=== PATIENT | male | born 1930 | race Caucasian/White ===

== ENCOUNTER 2017-12-26 12:17 | Emergency (ER) | payer MEDICARE, BC ==
[2017-12-26] MEDS ORDERED: NS 0.9% 1000 ML* 1,000 ML IV ONE (13:03)
[2017-12-26] MEDS ORDERED: Acetaminophen TAB* 325 MG PO ONE (13:03)
--- NOTE | 2017-12-26 13:21 | RAD ---
HISTORY: Fever COMPARISONS: October 05, 2014 VIEWS: 1: frontal portable view of the chest at 1:08 PM. Evaluation lung apices is limited by positioning. FINDINGS: LINES AND TUBES: There is left-sided pacemaker. CARDIOMEDIASTINAL SILHOUETTE: The cardiomediastinal silhouette is normal for portable technique. PLEURA: The costophrenic angles are sharp. No pleural abnormalities are noted. LUNG PARENCHYMA: The lungs are clear. ABDOMEN: The upper abdomen is clear. There is no subphrenic gas. BONES AND SOFT TISSUES: No bone or soft tissue abnormalities are noted. IMPRESSION: NO ACTIVE CARDIOPULMONARY DISEASE.
[2017-12-26 13:32] LABS: ABS Basophils 0 10^3/ul (0-0.2); ABS Eosinophils 0.2 10^3/ul (0-0.6); ABS Lymphocytes 0.5 10^3/ul (1.0-4.8); ABS Monocytes 0.8 10^3/ul (0-0.8); ABS Neutrophils 6.8 10^3/ul (1.5-7.7); ABS Nucleated RBC 0 10^3/ul; Eosinophil % 2.4 % (0-6); Hematocrit 31 % (42-52); Hemoglobin 10.8 g/dl (14.0-18.0); Lymphocyte % 5.6 % (25-47); Mean Corpuscular HGB Conc 35 g/dl (31-36); Mean Corpuscular Hemoglobin 33 pg (27-31); Mean Corpuscular Volume 96 fL (80-94); Mean Platelet Volume 7 um3 (7.4-10.4); Nucleated Red Blood Cells % 0; Platelet Count 188 10^3/ul (150-450); Red Blood Count 3.25 10^6/ul (4.0-5.4); Red Cell Distribution Width 15 % (10.5-15); White Blood Count 8.2 10^3/ul (3.5-10.8)
[2017-12-26 13:40] LABS: INR 1.04 (0.77-1.02)
[2017-12-26] MEDS ORDERED: Ciprofloxacin TAB* 500 MG PO ONE (14:56)
[2017-12-26 15:11] LABS: Urine Appearance Clear; Urine Blood Negative (Negative); Urine Color Yellow; Urine Ketones Negative (Negative); Urine Protein 2+(100 mg/dL) (Negative); Urine Specific Gravity 1.014 (1.010-1.030); Urine Urobilinogen Negative (Negative)
[2017-12-26 16:22] VITALS: BP 132/65
--- NOTE | 2017-12-27 22:44 | ED ---
Tyler Mcginnis Stephanie, scribed for Bon Rodrigez MD on 12/26/17 at 1323 . HPI Febrile Illness - HPI Summary HPI Summary: The pt is an 87 y/o M presenting to the ED with c/o fever that began at 10:00. Symptoms include productive cough with white phlegm, chills, tremors, lower back pain that radiates to his L side and up to his ribs (began 3 weeks ago) and myalgia. The pt denies N/V/D, dysuria, hematuria, SOB and increased urinary frequency. - History of Current Complaint Chief Complaint: EDGeneral Time Seen by Provider: 12/26/17 12:56 Hx Obtained From: Patient Onset/Duration: Started Hours Ago, Still Present Time of Onset: 10:00 Timing: Constant Pain Intensity: 0 Pain Scale Used: 0-10 Numeric Aggravating Factors: Nothing Alleviating Factors: Nothing Associated Signs and Symptoms: Chills, Other: - cough with white phlegm, tremors , lower back pain that radiates to his L side and up to his ribs (began 3 weeks ago) and myalgia - Allergy/Home Medications Allergies/Adverse Reactions: Allergies Allergy/AdvReac Type Severity Reaction Status Date / Time MS Erythromycin Allergy Unknown Verified 10/05/14 09:32 [Erythromycin] Reaction Details MS Metronidazole Allergy Unknown Verified 10/05/14 09:32 [Metronidazole] Reaction Details MS Morphine [Morphine] Allergy Unknown Verified 10/05/14 09:32 Reaction Details MS Primidone [From Primodone] Allergy Unknown Verified 10/05/14 09:32 Reaction Details MS Simvastatin [From Zocor] Allergy Unknown Verified 10/05/14 09:32 Reaction Details chocolate Allergy Unknown Uncoded 10/05/14 09:32 Reaction Details PMH/Surg Hx/FS Hx/Imm Hx Endocrine/Hematology History: Reports: Hx Anemia Denies: Hx Diabetes Cardiovascular History: Reports: Hx Angina, Hx Auto Implanted Cardiovert Defib, Hx Coronary Artery Disease, Hx Pacemaker/ICD - 2011, Hx Syncope Denies: Hx Hypercholesterolemia, Hx Hypertension, Hx Myocardial Infarction, Hx Valvular Heart Disease Respiratory History: Denies: Hx Asthma, Hx Chronic Obstructive Pulmonary Disease (COPD) GI History: Reports: Hx Diverticulosis, Hx Gall Bladder Disease - CHOLEY History: Reports: Hx Benign Prostatic Hyperplasia, Other Problems/ Disorders - Prostate sx Musculoskeletal History: Reports: Hx Arthritis - KNEES, Hx Orthopedic Injury, Other Musculoskeletal History - LEFT BROKEN FEMUR, PELVIS Sensory History: Reports: Hx Contacts or Glasses, Hx Hearing Aid Opthamlomology History: Reports: Hx Contacts or Glasses - Surgical History Surgery Procedure, Year, and Place: PACEMAKER. CARDIAC STENT. [place]. L SHOULDER. PROSTATE Hx Anesthesia Reactions: No Infectious Disease History: No Infectious Disease History: Reports: Hx Hepatitis - UNKNOWN WHAT TYPE Denies: Hx Clostridium Difficile, Hx Human Immunodeficiency Virus (HIV), Hx of Known/Suspected MRSA, Hx Shingles, Hx Tuberculosis, Hx Known/Suspected VRE, Hx Known/Suspected VRSA, Traveled Outside the [place] in Last 30 Days - Family History Known Family History: Positive: Unknown - The pt denies fhx. - Social History Occupation: Retired Lives: With Family Alcohol Use: Rare Substance Use Type: Reports: None Smoking Status (MU): Never Smoked Tobacco Review of Systems Positive: Fever, Chills Negative: Erythema Negative: Sore Throat Negative: Chest Pain Negative: Shortness Of Breath, Cough Negative: Abdominal Pain, Vomiting, Nausea Negative: dysuria, frequency, hematuria Positive: Myalgia, Other - lower back pain that radiates to his L side and up to his ribs. Negative: Edema Negative: Rash Neurological: Other - tremors, Negative: dizziness All Other Systems Reviewed And Are Negative: Yes Physical Exam - Summary Physical Exam Summary: Constitutional: Well-developed, Well-nourished, Alert. (-) Distressed, rigors Skin: Warm, Dry HENT: Normocephalic; Atraumatic Eyes: Conjunctiva normal Neck: Musculoskeletal ROM normal neck. (-) JVD, (-) Stridor, (-) Tracheal deviation Cardio: Rhythm regular, rate normal, Heart sounds normal; Intact distal pulses; The pedal pulses are 2+ and symmetric. Radial pulses are 2+ and symmetric. (-) Murmur Pulmonary/Chest wall: Effort normal. (-) Respiratory distress, (-) Wheezes, (-) Rales Abd: Soft, (-) Tenderness, (-) Distension, (-) Guarding, (-) Rebound Musculoskeletal: (-) Edema Lymph: (-) Cervical adenopathy Neuro: Alert, Oriented x3 Psych: Mood and affect Normal Triage Information Reviewed: Yes Vital Signs On Initial Exam: Initial Vitals Temp Pulse Resp BP Pulse Ox 99.9 F 88 20 183/89 95 12/26/17 12:19 12/26/17 12:19 12/26/17 12:19 12/26/17 12:19 12/26/17 12:19 Vital Signs Reviewed: Yes Diagnostics - Vital Signs Vital Signs Temp Pulse Resp BP Pulse Ox 12/26/17 12:19 99.9 F 88 20 183/89 95 - Laboratory Result Diagrams: 12/26/17 13:15 12/26/17 13:15 Lab Statement: Any lab studies that have been ordered have been reviewed, and results considered in the medical decision making process. - Radiology CXR Xray Interpretation: No Acute Changes Radiology Interpretation Completed By: Radiologist - NO ACTIVE CARDIOPULMONARY DISEASE. Re-Evaluation - Re-Evaluation First Eval Re-Evaluation Time: 14:45 Change: Unchanged - The pt reports he has been having urinary hesitancy that began after his prostate surgery a few years ago. Course/Dx - Course Course Of Treatment: Because the pt was febrile, he will be discharged home with Cipro for 3 days. The pt has no signs of sepsis and he has no delirium. His family requested he was sent home in a taxi. - Diagnoses Provider Diagnoses: Acute urinary retention, Prostatic hypertrophy Discharge - Discharge Plan Condition: Stable Disposition: HOME Patient Education Materials: Urinary Retention in Men (ED) Referrals: Grant Adame MD [Primary Care Provider] - 3 Days Additional Instructions: RETURN TO THE EMERGENCY DEPARTMENT FOR CHANGING OR WORSENING SYMPTOMS The documentation as recorded by the Tyler gaviria Stephanie accurately reflects the service I personally performed and the decisions made by , Bon Rodrigez MD.
== END 2017-12-26 16:29 | disposition home or self-care (01) ==
LOC: ED 12:17
DX: N40.1 Benign prostatic hyperplasia with lower urinary tract symptoms (principal); R33.8 Other retention of urine; R05 Cough; R50.9 Fever, unspecified; Z88.3 Allergy status to other anti-infective agents; Z88.5 Allergy status to narcotic agent; Z88.8 Allergy status to other drugs, medicaments and biological substances
CPT/HCPCS: 36415; 71045; 80053; 81003; 81015; 83605; 84484; 85025; 85610; 85730; 87040; 87502; 96360; 99283; A9270-GY

== ENCOUNTER 2017-12-27 12:20 | Emergency (ER) | payer MEDICARE, BC ==
--- NOTE | 2017-12-27 12:44 | ED ---
Complaint/Male - History of Current Complaint Chief Complaint: EDUrogenitalProblems Time Seen by Provider: 12/27/17 12:38 Hx Obtained From: Patient, Medical Records - from 12/26/17 Onset/Duration: Sudden Onset, Lasting Hours, Still Present - acute urinary retention with gustafson in place Timing: Constant, Lasting Hours Severity Initially: Moderate Severity Currently: Moderate Location: Suprapubic Radiates to: none Character: Constant Pressure Aggravating Factor(s): Nothing Alleviating Factor(s): Nothing Associated Signs And Symptoms: Negative - Allergies/Home Medications Allergies/Adverse Reactions: Allergies Allergy/AdvReac Type Severity Reaction Status Date / Time MS Erythromycin Allergy Unknown Verified 10/05/14 09:32 [Erythromycin] Reaction Details MS Metronidazole Allergy Unknown Verified 10/05/14 09:32 [Metronidazole] Reaction Details MS Morphine [Morphine] Allergy Unknown Verified 10/05/14 09:32 Reaction Details MS Primidone [From Primodone] Allergy Unknown Verified 10/05/14 09:32 Reaction Details MS Simvastatin [From Zocor] Allergy Unknown Verified 10/05/14 09:32 Reaction Details chocolate Allergy Unknown Uncoded 10/05/14 09:32 Reaction Details PMH/Surg Hx/FS Hx/Imm Hx Previously Healthy: No Endocrine/Hematology History: Reports: Hx Anemia Denies: Hx Diabetes Cardiovascular History: Reports: Hx Angina, Hx Auto Implanted Cardiovert Defib, Hx Coronary Artery Disease, Hx Pacemaker/ICD - 2011, Hx Syncope Denies: Hx Hypercholesterolemia, Hx Hypertension, Hx Myocardial Infarction, Hx Valvular Heart Disease Respiratory History: Denies: Hx Asthma, Hx Chronic Obstructive Pulmonary Disease (COPD) GI History: Reports: Hx Diverticulosis, Hx Gall Bladder Disease - CELIO History: Reports: Hx Benign Prostatic Hyperplasia, Other Problems/ Disorders - Prostate sx Musculoskeletal History: Reports: Hx Arthritis - KNEES, Hx Orthopedic Injury, Other Musculoskeletal History - LEFT BROKEN FEMUR, PELVIS Sensory History: Reports: Hx Contacts or Glasses, Hx Hearing Aid Opthamlomology History: Reports: Hx Contacts or Glasses - Surgical History Surgery Procedure, Year, and Place: PACEMAKER. CARDIAC STENT. CELIO. L SHOULDER. PROSTATE Hx Anesthesia Reactions: No Infectious Disease History: No Infectious Disease History: Reports: Hx Hepatitis - UNKNOWN WHAT TYPE Denies: Hx Clostridium Difficile, Hx Human Immunodeficiency Virus (HIV), Hx of Known/Suspected MRSA, Hx Shingles, Hx Tuberculosis, Hx Known/Suspected VRE, Hx Known/Suspected VRSA, Traveled Outside the [place] in Last 30 Days - Family History Known Family History: Positive: Hypertension - Social History Alcohol Use: Rare Substance Use Type: Reports: None Smoking Status (MU): Never Smoked Tobacco Review Of Systems Constitutional: Positive: Negative Skin: Positive: Negative Respiratory: Positive: Negative Cardiovascular: Positive: Negative Gastrointestinal: Positive: Negative Genitourinary: Positive: Hematuria, Other - gustafson will not drain this am Musculoskeletal: Positive: Negative Neurological: Positive: Negative Psychological: Positive: Negative All Other Systems Reviewed And Are Negative: Yes Physical Exam Triage Information Reviewed: Yes Vital Signs On Initial Exam: Initial Vitals Temp Pulse Resp BP Pulse Ox 99.1 F 85 20 176/83 100 12/27/17 12:22 12/27/17 12:22 12/27/17 12:22 12/27/17 12:22 12/27/17 12:22 Vital Signs Reviewed: Yes Appearance: Positive: Well-Appearing, Well-Nourished, Pain Distress - mild Skin: Positive: Warm, Dry Head/Face: Positive: Normal Head/Face Inspection Eyes: Positive: EOMI, Conjunctiva Clear ENT: Positive: Normal ENT inspection Neck: Positive: Supple Respiratory/Lung Sounds: Positive: Clear to Auscultation Cardiovascular: Positive: RRR Abdomen Description: Positive: Nontender, Soft. Negative: Distended, Guarding Bowel Sounds: Positive: Present Male Genital Exam: Positive: normal genitalia, other - gustafson catheter in place, flushed by RN, clot released, gustafson draining pink tinged urine in good amounts. Pt reports relief of all discomfort Diagnostics - Vital Signs Vital Signs Temp Pulse Resp BP Pulse Ox 12/27/17 12:22 99.1 F 85 20 176/83 100 - Laboratory Lab Statement: Any lab studies that have been ordered have been reviewed, and results considered in the medical decision making process. Complaint Male Course/Dx - Course Course Of Treatment: Pt had gustafson catheter placed yesterday in ED. Returns today because catheter is not draining. Pt is on Cipro started yesterday. Pt has had catheters in the past for BPH. Pt is on ASA but not other blood thinners. Reports some hematuria this am. Denies fever, abd pain, N, V. Gustafson catheter was flushed by RN, large clot removed, pink tinged urine clears to yellow with good flow. Abd soft, nondistended and pt reports relief of discomfort. Gustafson bag changed by RN, pt instructed to continue Cipro as directed and to f/u with urology as directed yesterday. Pt states he is not a patient of [facility], had out of town urologists in the past. States he has [facility], will contact them on 12/28/17 and will follow up either with [facility] or [facility]. - Differential Dx/Diagnosis Differential Diagnosis/HQI/PQRI: Cancer, Other - acute urinary retention due to gustafson obstruction with clot Provider Diagnoses: acute urinary retention due to indwelling gustafson catheter obstruction by clot, relieved with catheter irrigation.
[2017-12-27 12:51] VITALS: BP 00/00
== END 2017-12-27 12:50 | disposition home or self-care (01) ==
LOC: ED 12:20
DX: T83.091A Other mechanical complication of indwelling urethral catheter, initial encounter (principal); R33.8 Other retention of urine; D64.9 Anemia, unspecified; I25.119 Atherosclerotic heart disease of native coronary artery with unspecified angina pectoris; Z95.810 Presence of automatic (implantable) cardiac defibrillator; N40.0 Benign prostatic hyperplasia without lower urinary tract symptoms; Z95.5 Presence of coronary angioplasty implant and graft; Z88.1 Allergy status to other antibiotic agents; Z88.5 Allergy status to narcotic agent; Z88.8 Allergy status to other drugs, medicaments and biological substances
CPT/HCPCS: 99282

== ENCOUNTER 2017-12-28 15:22 | Emergency (ER) | payer MEDICARE, BC ==
[2017-12-28 19:02] VITALS: BP 143/67
--- NOTE | 2017-12-28 21:53 | ED ---
Jet Mcginnis Tiffany, scribed for Lupe Dumont MD on 12/28/17 at 1823 . GI/ HPI - HPI Summary HPI Summary: The patient is an 87 year old M presenting to [facility] accompanied by step-son and with a chief complaint of blocked gustafson catheter since 13:00 today. The patient rates the pain 10/10 in severity. Symptoms aggravated by nothing. Symptoms alleviated by nothing. Patient recently had his catheter cleared during his ED visit on 12/27/17. - History of Current Complaint Chief Complaint: EDUrogenitalProblems Time Seen by Provider: 12/28/17 16:31 Stated Complaint: CATHER PROBLEMS Hx Obtained From: Patient Onset/Duration: Started Hours Ago - 13:00 today, Still Present Current Severity: Severe Pain Intensity: 10 - Allergy/Home Medications Allergies/Adverse Reactions: Allergies Allergy/AdvReac Type Severity Reaction Status Date / Time MS Erythromycin Allergy Unknown Verified 10/05/14 09:32 [Erythromycin] Reaction Details MS Metronidazole Allergy Unknown Verified 10/05/14 09:32 [Metronidazole] Reaction Details MS Morphine [Morphine] Allergy Unknown Verified 10/05/14 09:32 Reaction Details MS Primidone [From Primodone] Allergy Unknown Verified 10/05/14 09:32 Reaction Details MS Simvastatin [From Zocor] Allergy Unknown Verified 10/05/14 09:32 Reaction Details chocolate Allergy Unknown Uncoded 10/05/14 09:32 Reaction Details PMH/Surg Hx/FS Hx/Imm Hx Previously Healthy: No Endocrine/Hematology History: Reports: Hx Anemia Denies: Hx Diabetes Cardiovascular History: Reports: Hx Angina, Hx Auto Implanted Cardiovert Defib, Hx Coronary Artery Disease, Hx Pacemaker/ICD - 2011, Hx Syncope Denies: Hx Hypercholesterolemia, Hx Hypertension, Hx Myocardial Infarction, Hx Valvular Heart Disease Respiratory History: Denies: Hx Asthma, Hx Chronic Obstructive Pulmonary Disease (COPD) GI History: Reports: Hx Diverticulosis, Hx Gall Bladder Disease - CELIO History: Reports: Hx Benign Prostatic Hyperplasia, Other Problems/ Disorders - Prostate sx Musculoskeletal History: Reports: Hx Arthritis - KNEES, Hx Orthopedic Injury, Other Musculoskeletal History - LEFT BROKEN FEMUR, PELVIS Sensory History: Reports: Hx Contacts or Glasses, Hx Hearing Aid Opthamlomology History: Reports: Hx Contacts or Glasses - Surgical History Surgery Procedure, Year, and Place: PACEMAKER. CARDIAC STENT. CELIO. L SHOULDER. PROSTATE Hx Anesthesia Reactions: No Infectious Disease History: No Infectious Disease History: Reports: Hx Hepatitis - UNKNOWN WHAT TYPE Denies: Hx Clostridium Difficile, Hx Human Immunodeficiency Virus (HIV), Hx of Known/Suspected MRSA, Hx Shingles, Hx Tuberculosis, Hx Known/Suspected VRE, Hx Known/Suspected VRSA, Traveled Outside the [place] in Last 30 Days - Family History Known Family History: Positive: Hypertension - Social History Alcohol Use: None Hx Substance Use: No Substance Use Type: Reports: None Hx Tobacco Use: No Smoking Status (MU): Never Smoked Tobacco Review of Systems Negative: Fever Positive: other - Blocked gustafson catheter All Other Systems Reviewed And Are Negative: Yes Physical Exam - Summary Physical Exam Summary: Appearance: Ill-appearing, moderate pain distress, Well-nourished Skin: Warm, color reflects adequate perfusion Head: Normal Head/Face inspection Eyes: Conjunctiva clear ENT: Normal inspection Neck: Supple, no nodes, no JVD. Respiratory: Lungs clear, Normal breath sounds, no respiratory distress Cardio: RRR, No murmur, pulses normal, brisk capillary refill Abdomen: soft, nontender Bowel sounds: present Musculoskeletal: Strength Intact/ ROM intact. No calf tenderness. No edema. Neuro: Alert, muscle tone normal, facial symmetry, speech normal, sensory/motor intact Psychological: Normal Triage Information Reviewed: Yes Vital Signs On Initial Exam: Initial Vitals Temp Pulse Resp BP Pulse Ox 98.9 F 83 16 169/83 100 12/28/17 15:32 12/28/17 15:32 12/28/17 15:32 12/28/17 15:32 12/28/17 15:32 Vital Signs Reviewed: Yes Diagnostics - Vital Signs Vital Signs Temp Pulse Resp BP Pulse Ox 12/28/17 15:32 98.9 F 83 16 169/83 100 - Laboratory Lab Statement: Any lab studies that have been ordered have been reviewed, and results considered in the medical decision making process. GIGU Course/Dx - Course Course Of Treatment: Allergies noted. High blood pressure noted. Patient medications reviewed this visit. Discharge - Discharge Plan Condition: Stable Disposition: HOME Prescriptions: Ciprofloxacin HCl [Cipro] 500 mg PO BID #14 tablet Patient Education Materials: Gustafson Catheter Placement and Care (ED) Referrals: Grant Adame MD [Primary Care Provider] - Kemar Lehman MD [Medical Doctor] - As Soon As Possible Additional Instructions: We have extended your Cipro 500mg twice a day for one week more, so finish the Cipro you were given by Dr. Rodrigez and then finish the Cipro given by Dr. Dumont. Call for an appointment with urology to be seen as soon as they can accommodate you, hopefully within a week. Return to the ER if you have new or worsening symptoms. The documentation as recorded by the Jet gaviria Tiffany accurately reflects the service I personally performed and the decisions made by , Lupe Dumont MD.
== END 2017-12-28 19:01 | disposition home or self-care (01) ==
LOC: ED 15:22
DX: T83.9XXA Unspecified complication of genitourinary prosthetic device, implant and graft, initial encounter (principal); Z88.3 Allergy status to other anti-infective agents; Z88.5 Allergy status to narcotic agent; Z88.8 Allergy status to other drugs, medicaments and biological substances
CPT/HCPCS: 99282

== ENCOUNTER 2019-09-21 11:13 | Emergency (ER) | payer MEDICARE, OTHER, BC ==
--- NOTE | 2019-09-21 11:33 | ED ---
Back Pain - HPI Summary HPI Summary: 89 year old M brought to [facility] by EMS complains of sudden onset severe diffuse back pain radiating to the neck that started at 07:00 this morning. The patient rated the pain 8/10 in severity initially and 0/10 currently. Patient states he woke up this morning at 06:30, got dressed, and was preparing breakfast when he developed sudden onset diffuse back pain radiating to his neck. Patient reports his back pain lasted for an hour and a half and is now improved from initial onset. Patient now complains of being shakey. Patient denies chest discomfort, shortness of breath, nausea, and abdominal discomfort. 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 Hx OR in 2018 with stent placement. Patient states today's sx are different from his OR in 2018 but he called his acupuncturist who referred to the ED. Symptoms aggravated by nothing. Symptoms alleviated by nothing. On Eliquis per EMS. No hx HTN per EMS. No hx adverse reaction to IV contrast. No hx kidney disease. Hx pacemaker. - History of Current Complaint Chief Complaint: EDBackInjuryPain Stated Complaint: BACK PAIN PER EMS Time Seen by Provider: 09/21/19 11:15 Hx Obtained From: Patient, EMS Onset/Duration: Sudden Onset, Lasting Hours - 1.5, Still Present Onset/Duration: Started Hours Ago, Still Present Timing: Constant, Lasting Hours - 1.5 Back Pain Location: Is Diffuse, Radiates To - neck Severity Initially: Severe Severity Currently: None Pain Intensity: 0 Pain Scale Used: 0-10 Numeric Aggravating Symptom(s): Nothing Alleviating Symptom(s): Nothing Associated Signs And Symptoms: Positive: Negative - chest discomfort, shortness of breath, nausea, and abdominal discomfort, Other - chronic lower extremity edema with the left being worse than the right - Risk Factors AAA Risk Factors: Hypertension - Allergies/Home Medications Allergies/Adverse Reactions: Allergies Allergy/AdvReac Type Severity Reaction Status Date / Time chocolate flavor Allergy Unknown Verified 09/21/19 11:28 Reaction Details erythromycin base Allergy Unknown Verified 09/21/19 11:28 Reaction Details metronidazole Allergy Unknown Verified 09/21/19 11:28 Reaction Details morphine Allergy Unknown Verified 09/21/19 11:28 Reaction Details primidone Allergy Unknown Verified 09/21/19 11:28 Reaction Details simvastatin [From Zocor] Allergy Unknown Verified 09/21/19 11:28 Reaction Details Home Medications: Home Medications Apixaban* [Eliquis*] 2.5 mg PO BID 09/21/19 [History Confirmed 09/21/19] Azelaic Acid 1 applic TOPICAL DAILY PRN 09/21/19 [History Confirmed 09/21/19] Calcium Carbonate CHEW TAB* [Tums*] 500 mg PO BID PRN 09/21/19 [History Confirmed 09/21/19] Cholecalciferol TAB* [Vitamin D TAB*] 1,000 unit PO DAILY 09/21/19 [History Confirmed 09/21/19] Hypromellose [Goniovisc] 1 drop BOTH EYES DAILY PRN 09/21/19 [History Confirmed 09/21/19] Multivitamins/Minerals TAB* [Theragran/minerals TAB*] 1 tab PO DAILY 09/21/19 [ History Confirmed 09/21/19] Rosuvastatin (NF) [Crestor (NF)] 5 mg PO DAILY 09/21/19 [History Confirmed 09/21] Triamcinolone 0.1% CREAM (NF) [Kenalog 0.1% Cream (NF)] 1 applic TOPICAL DAILY PRN 09/21/19 [History Confirmed 09/21/19] PMH/Surg Hx/FS Hx/Imm Hx Endocrine/Hematology History: Reports: Hx Anemia Denies: Hx Diabetes Cardiovascular History: Reports: Hx Angina, Hx Auto Implanted Cardiovert Defib, Hx Coronary Artery Disease, Hx Pacemaker/ICD - 2011, Hx Syncope Denies: Hx Hypercholesterolemia, Hx Hypertension, Hx Myocardial Infarction, Hx Valvular Heart Disease Respiratory History: Denies: Hx Asthma, Hx Chronic Obstructive Pulmonary Disease (COPD) GI History: Reports: Hx Diverticulosis, Hx Gall Bladder Disease - CELIO History: Reports: Hx Benign Prostatic Hyperplasia, Other Problems/ Disorders - Prostate sx Musculoskeletal History: Reports: Hx Arthritis - KNEES, Hx Orthopedic Injury, Other Musculoskeletal History - LEFT BROKEN FEMUR, PELVIS Sensory History: Reports: Hx Contacts or Glasses, Hx Hearing Aid Opthamlomology History: Reports: Hx Contacts or Glasses - Surgical History Surgery Procedure, Year, and Place: PACEMAKER. CARDIAC STENT. CELIO. L SHOULDER. PROSTATE Hx Anesthesia Reactions: No Infectious Disease History: No Infectious Disease History: Reports: Hx Hepatitis - UNKNOWN WHAT TYPE Denies: Hx Clostridium Difficile, Hx Human Immunodeficiency Virus (HIV), Hx of Known/Suspected MRSA, Hx Shingles, Hx Tuberculosis, Hx Known/Suspected VRE, Hx Known/Suspected VRSA, Traveled Outside the [place] in Last 30 Days - Family History Known Family History: Positive: Hypertension - Social History Alcohol Use: None Hx Substance Use: No Substance Use Type: Reports: None Hx Tobacco Use: No Smoking Status (MU): Never Smoked Tobacco Review of Systems Constitutional: Other - shaking Negative: Chest Pain Negative: Shortness Of Breath Negative: Abdominal Pain, Nausea Positive: Other - chronic lower extremity edema, back pain All Other Systems Reviewed And Are Negative: Yes Physical Exam - Summary Physical Exam Summary: Constitutional: Well-developed, Well-nourished, Alert. (-) Distressed Skin: Warm, Dry HENT: Normocephalic; Atraumatic Eyes: Conjunctiva normal Neck: Musculoskeletal ROM normal neck. (-) JVD, (-) Stridor, (-) Tracheal deviation Cardio: Rhythm regular, rate normal, Heart sounds normal; Intact distal pulses; The pedal pulses are 2+ and symmetric. Radial pulses are 2+ and symmetric. (-) Murmur Pulmonary/Chest wall: Effort normal. (-) Respiratory distress, (-) Wheezes, (-) Rales Abd: Soft, (-) tenderness, (-) Distension, (-) Guarding, (-) Rebound Musculoskeletal: 2+ pitting edema in the left, no tenderness in back upon palpation, no pain with ROM of the back or torso Lymph: (-) Cervical adenopathy Neuro: Alert, Oriented x3 Psych: Mood and affect Normal Triage Information Reviewed: Yes Vital Signs On Initial Exam: Initial Vitals Temp Pulse Resp BP Pulse Ox 97.6 F 75 24 187/117 99 09/21/19 11:24 09/21/19 11:24 09/21/19 11:24 09/21/19 11:24 09/21/19 11:24 Vital Signs Reviewed: Yes Musculoskeletal: Positive: Edema Left - 2+ pitting edema. Negative: Other - no tenderness in back upon palpation and no pain in ROM of back or torso Procedures - Sedation Patient Received Moderate/Deep Sedation with Procedure: No Diagnostics - Vital Signs Vital Signs Temp Pulse Resp BP Pulse Ox 09/21/19 11:24 97.6 F 75 24 187/117 99 - Laboratory Result Diagrams: 09/21/19 11:49 09/21/19 11:49 Lab Statement: Any lab studies that have been ordered have been reviewed, and results considered in the medical decision making process. - CT CTA Chest CT Interpretation Completed By: Radiologist Summary of CT Findings: 1. Atherosclerosis 2. No aortic intimal flap to suggest dissection. No aneurysmal dilation of the aorta. 3. No pulmonary arterial filling defect to suggest pulmonary embolism. ED physician has reviewed this report. - EKG 11:27 Cardiac Rate: NL - 67 bpm EKG Rhythm: Sinus Rhythm Summary of EKG Findings: Normal sinus rhythm at 67 bpm, prolonged DC, 1st degree AV block, normal QRS, normal QTc, normal ST, normal T-waves, normal EKG. Back Pain Course/Dx - Course Course Of Treatment: 89 year old M brought to [facility] by EMS complains of back pain radiating to the neck this morning since which has improved. Physical exam findings: 2+ pitting edema in the left, no tenderness in back upon palpation, no pain with ROM of the back or torso. Bloodwork results with no significant abnormalities except for RBC 3.10 L, Hgb 10.2 L, Hct 30L, MCV 97 H, MCH 33H, RDW 16 H, Plt Count 144 L, Absolute Neuts (auto) 8.1 H, Absolute Lymphs (auto) 0.6L, Potassium 5.1 H, BUN 48 H, Creatinine 1.96 H, BUN/ Creatinine Ratio 24.5 H, Glucsose 139 H, B-Natriuretic Peptide 139 H. An EKG shows normal sinus rhythm at 67 bpm, prolonged DC, 1st degree AV block, normal QRS, normal QTc, normal ST, normal T-waves, normal EKG. CTA Chest shows 1. Atherosclerosis 2. No aortic intimal flap to suggest dissection. No aneurysmal dilation of the aorta. 3. No pulmonary arterial filling defect to suggest pulmonary embolism per radiologist. Final dx acute back pain. Patient will be discharged home and was referred to Dr. Adame. Patient was instructed to return to Emergency Department for new or worsening symptoms. Patient understands and is agreeable to this plan. - Diagnoses Provider Diagnoses: Acute back pain Discharge ED - Sign-Out/Discharge Documenting (check all that apply): Patient Departure - Discharge - Discharge Plan Condition: Stable Disposition: HOME Patient Education Materials: Back Pain (ED) Print Language: SAO TOMEAN Referrals: Grant Adame MD [Primary Care Provider] - - Billing Disposition and Condition Condition: STABLE Disposition: Home - Attestation Statements Document Initiated by Scribe: Yes Documenting Scribe: Manuela Terry Provider For Whom Dianaibe is Documenting (Include Credential): Sandra Esteves MD Scribe Attestation: I, Manuela Terry, scribed for Sandra Khoury MD on at [id number]. Scribe Documentation Reviewed: Yes Provider Attestation: The documentation as recorded by the scribe, Manuela Terry accurately reflects the service I personally performed and the decisions made by me, Sandra Khoury MD Status of Scribe Document: Viewed
[2019-09-21 12:08] LABS: ABS Eosinophils 0.1 10^3/ul (0-0.6); ABS Lymphocytes 0.6 10^3/ul (1.0-4.8); ABS Monocytes 0.8 10^3/ul (0-0.8); ABS Neutrophils 8.1 10^3/ul (1.5-7.7); Eosinophil % 1.1 %; Hematocrit 30 % (42-52); Hemoglobin 10.2 g/dL (14.0-18.0); Lymphocyte % 6.5 %; Mean Corpuscular HGB Conc 34 g/dL (31-36); Mean Corpuscular Hemoglobin 33 pg (27-31); Mean Corpuscular Volume 97 fL (80-94); Mean Platelet Volume 8.1 fL (7.4-10.4); Platelet Count 144 10^3/uL (150-450); Red Cell Distribution Width 16 % (10-15); White Blood Count 9.7 10^3/uL (3.5-10.8)
[2019-09-21 12:23] LABS: Albumin/Globulin Ratio 1.5 (1-3); BUN/Creatinine Ratio 24.5 (8-20); Calcium 9.5 mg/dL (8.6-10.3); EGFR African American 39.2 (>60); EGFR Non-African American 32.4 (>60); Globulin 2.7 g/dL (2-4); Potassium 5.1 mmol/L (3.5-5.0); Total Bilirubin 0.4 mg/dL (0.2-1.0); Total Protein 6.7 g/dL (6.4-8.9)
[2019-09-21 12:24] LABS: Troponin I 0.01 ng/mL (<0.04)
[2019-09-21] MEDS ORDERED: Iodixanol* (CONTRAST) 320 MG/ML 100 ML SDV IV ONE (12:28)
--- OUTSIDE RECORDS SUMMARY | 2019-09-21 13:45 | XMS REPORT | Summary of Care ---
:1930 Author Organization [facility] Address [address] [address] Care Team Providers Name Role Phone Grant Adame Primary Care Provider Fabián Phillips MD Secondary Drive Tester/Glass Deposition Tender Yessica Guerrero Meat Dresser Unavailable Reason for Visit Reason Comments Follow Up Pt. in for a Follow up on TIA. Pt. Denies Cardiac Symptoms. Encounter Details Date Type Department Care Team Description 09/01/2019 Office Visit Aylin Bui Martita, Paroxysmal atrial fibrillation (HCC) (Primary Dx); Cardiology MD Andrew Sinus node dysfunction (HCC); [address] Coronary artery disease involving muscogee coronary artery of muscogee heart without angina pectoris; [place] [address] [place] [address] Pacemaker [phone] Allergies Active Allergy Reactions Severity Noted Date Comments Chocolate 12/09/2007 Erythromycin GI Reaction High 12/09/2007 diarrhea Metronidazole 12/09/2007 Morphine GI Reaction Medium 12/09/2007 vomitting Prednisone Primidone SAT ACT INSTRUCTOR Reaction 08/30/2008 Dizziness and headache Probiotic GI Reaction 04/19/2014 Worse gas symptoms Tetracycline Hcl Simvastatin Other Medium 12/09/2007 Leg myalgias documented as of this encounter (statuses as of 09/01/2019) Medications Medication Sig Dispensed Refills Start Date End Date Status daily vitamin PO TABS Take 1 Tab by 0 Active mouth EVERY MORNING. Azelaic Acid (FINACEA) by Apply 0 Active 15 % Apply externally externally route Gel NEEDED Hypromellose Place to the 0 Active (ARTIFICIAL TEARS OP) external eye. calcium carbonate Take 1 Tab by 0 Active (TUMS) 500 MG Oral mouth NEEDED. Chew Tab allopurinol (ZYLOPRIM) take 1/2 tablet by 45 Tab 3 09/06/2018 Active 300 MG Oral Tab mouth once daily Omeprazole delayed rel take 1 capsule by 90 Cap 3 04/05/2019 Active cap 20 MG Oral CAPSULE mouth once daily DELAYED RELEASE Tamsulosin HCl take 1 to 2 180 Cap 3 04/05/2019 Active (FLOMAX) 0.4 MG Oral capsules by mouth Cap daily Vitamin D, Take by mouth 0 Active Cholecalciferol, 1000 DAILY. units Oral Cap apixaban (ELIQUIS) 2.5 Take 1 Tab by 180 Tab 3 05/02/2019 Active MG Oral mouth TWICE DAILY. TabIndications: TIA (transient ischemic attack), Paroxysmal atrial fibrillation (HCC) triamcinolone Apply to affected 80 g 5 06/09/2019 Active (KENALOG,ARISTOCORT) areas daily as 0.1 % Apply externally needed Cream Rosuvastatin Calcium 5 Take 1 Tab by 90 Tab 3 09/01/2019 Active MG Oral Tab mouth DAILY. documented as of this encounter (statuses as of 09/01/2019) Active Problems Problem Noted Date Atrial fibrillation 05/04/2019 Overview: Added automatically from request for surgery [id number] Paroxysmal atrial fibrillation 05/02/2019 Abnormality of mitral valve annulus 03/24/2019 Overview: Added automatically from request for surgery [id number] Right-sided low back pain with sciatica 07/02/2016 Lumbosacral spondylosis with radiculopathy 07/02/2016 Status post total right knee replacement 08/17/2015 S/P total knee arthroplasty 06/01/2015 Acute on chronic renal insufficiency 05/16/2015 Retention of urine 05/16/2015 Hyponatremia 05/16/2015 Osteoarthrosis, unspecified whether generalized or localized, lower leg 2014 Ptosis, both eyes 03/28/2015 Bilateral dry eyes 03/28/2015 Sinus node dysfunction 11/27/2014 Overview: Perm pacer placed 2010 Coronary artery disease involving muscogee coronary artery of muscogee heart 12/03 without angina pectoris Overview: Status post placement of drug-eluting stent in the left anterior descending, July [address] Reza Crockett at [facility] BMI 28.0-28.9,adult 06/24/2011 Overview: This patient's BMI has been calculated and is above average, and BMI management plan is completed. 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 Epiretinal membrane, both eyes 08/24/2002 Asteroid hyalitis of left eye 08/24/2002 Bilateral pseudophakia 07/01/2000 Essential hypertension Endothelial corneal dystrophy Muscle pain Joint pain Limb tremor Overview: Right Arm Tremor CKD (chronic kidney disease) stage 3, GFR 30-59 ml/min documented as of this encounter (statuses as of 09/01/2019) Resolved Problems Problem Noted Date Resolved Date Anemia, blood loss 05/16/2015 08/02/2018 documented as of this encounter (statuses as of 09/01/2019) Immunizations Name Administration Dates Next Due Depo Medrol (40mg) 04/19/2014, 11/25/2010, 12/10/2009 Depo Medrol (80mg) 11/25/2011 H1N1 Injectable Adult 10/31/2009 Influenza (IM) Preservative Free 07/19/2013, 08/03/2012, 08/30/2008 Influenza Vaccine High Dose 08/09/2019, 08/02/2018, 08/03/2017, 07/15/2016, 07/30/2015, 07/25/2014 Pneumococcal Conjugate Vaccine 08/17/1998 Pneumococcal Conjugate(13 Valent) 11/27/2014 dT Vaccine 08/17/1998 documented as of this encounter Social History Tobacco Use Types Packs/Day Years Used Date Never Smoker Smokeless Tobacco: Never Used Alcohol Use Drinks/Week oz/Week Comments No 0 Standard drinks or equivalent 0.0 Sex Assigned at Date Recorded Not on file Job Start Date Occupation Industry Not on file Not on file Not on file Travel History Travel Start Travel End No recent travel history available. documented as of this encounter Last Filed Vital Signs Vital Sign Reading Time Taken Comments Blood Pressure 128/70 09/01/2019 4:14 PM EDT Pulse 76 09/01/2019 4:14 PM EDT Temperature - - Respiratory Rate - - Oxygen Saturation - - Inhaled Oxygen Concentration - - Weight 88.9 kg (196 lb) 09/01/2019 4:14 PM EDT Height 177.8 cm (5' 10") 09/01/2019 4:14 PM EDT Body Mass Index 28.12 09/01/2019 4:14 PM EDT documented in this encounter Patient Instructions Patient InstructionsMcAndrew Recinos MD - 09/01/2019 4:20 PM EDT START taking Crestor 5mg once every evening. No other medication changes today. Continue with regular activity/exercise. Follow up with me in 6 months or sooner if needed. documented in this encounter Progress Notes Andrew Anders MD - 09/01/2019 4:20 PM EDT [facility] Patient: Vlad Kaba Date of : 1930 Date of Service: 09/01/2019 REFERRING PRACTITIONER: Grant Adame PRIMARY CARE PROVIDER: Grant Adame Chief Complaint: Chief Complaint Patient presents with Follow Up Pt. in for a Follow up on TIA. Pt. Denies Cardiac Symptoms. History of Present Illness: We had the pleasure of seeing Vlad Kaba today at the [facility]. He is a 88-y.o. male with HTN, CKD, GERD, Schatzki's ring s/p esophageal dilation, SSS s/p Medtronic dual chamber ppm, CAD with ACS 2010 and resultant SONIA to mLAD with residual moderate disease in diag and RCA. He also had a TIA 01/2019, and pacemaker interrogations have revealedparoxysmal atrial fibrillation. In May 2019 he had an atrial lead fracture and had generator and lead replacement. Mr. Kaba returns to cardiology clinic today for routine f/u. Since his last visit with me, he reports feeling fairly well. He denies any limiting dyspnea or CP. He does aquatic exercises at twice weekly and feels good with that. Denies any palpitations, lightheadedness, or syncope. No orthopnea, paroxysmal dyspnea, or lower extremity edema. Patient Active Problem List Diagnosis Gout, GERD (gastroesophageal reflux disease) DA (degenerative arthritis) Mild Renal Insufficiency BPH Diverticulitis HDL lipoprotein deficiency Rosacea Schatzki's ring Colonic polyp Benign essential tremor Macular cyst, hole, or pseudohole of retina BMI 28.0-28.9,adult Coronary artery disease involving muscogee coronary artery of muscogee heart without angina pectoris Essential hypertension Sinus node dysfunction (HCC) Osteoarthrosis, unspecified whether generalized or localized, lower leg Acute on chronic renal insufficiency Retention of urine Hyponatremia S/P total knee arthroplasty Status post total right knee replacement Bilateral pseudophakia Epiretinal membrane, both eyes 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 Muscle pain Joint pain Limb tremor Ptosis, both eyes Bilateral dry eyes Right-sided low back pain with sciatica Lumbosacral spondylosis with radiculopathy CKD (chronic kidney disease) stage 3, GFR 30-59 ml/min (HCC) Abnormality of mitral valve annulus Paroxysmal atrial fibrillation (HCC) Atrial fibrillation (HCC) Past Medical History: Diagnosis Date Actinic keratosis of multiple sites of head and neck Benign essential tremor BPH 12/09/2007 CKD (chronic kidney disease) stage 3, GFR 30-59 ml/min (HCC) DA (degenerative arthritis) 12/09/2007 Diverticulitis 12/09/2007 GERD (gastroesophageal reflux disease) 12/09/2007 Gout, 12/09/2007 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 ARTHROPLASTY TOTAL KNEE Right 05/14/2015 Procedure: ARTHROPLASTY TOTAL KNEE PERSONA RIGHT; Surgeon: Galileo Young MD ; Location: [facility] MAIN OR [facility] ANGIOP ICRA PRQ CATARACT EXTRACTION NEC 1999 CATARACT/LENS SURGERY CYSTOSCOPY 07/30/2010 Procedure:CYSTOSCOPY; Surgeon:YUE YADAV; Location:[facility] ANCILLARY OR; Laterality:N/A CYSTOSCOPY 08/23/2010 Procedure:CYSTOSCOPY; Surgeon:YUE YADAV; Location:[facility] MAIN OR; Laterality :N/A ECHO, TRANS ESOPHOGEAL N/A 04/19/2019 Procedure: Echo, Trans Esophogeal; Surgeon: Andrew Anders MD; Location : [facility] CCL IMPLANT PERMANENT PACEMAKER INSERTION 12/26/11 Dr. Crockett LEFT HEART CATH,RETROGGRADE,FRO 07/28/11 Cardiac Cath, Left Heart PHACOEMULSIFICATION WITH INTRA OCULAR LENS Right 06/17/2000 DR. MARY LUONGSOJose Model: SA30AL, +16.5D, SN: [id number] PHACOEMULSIFICATION WITH INTRA OCULAR LENS Left 07/01/2000 DR. MARY PANTOJA Model: SA30AL +17.0D sn: [id number] IA FEMUR/KNEE SURG UNLISTED IA INS NEW/RPLCMT PRM PACEMAKR W/TRANS ELTRD ATRIAL IA OPEN CORONARY ENDARTERECTOMY 07/28/11 Angioplasty IA RECONSTRUCT SCAPHOID CARPAL W PROSTHESIS IA REMOVAL GALLBLADDER 1971 PROSTATIC OPERATION NEC 05/31/09 ablation of prostate REPAIR OF HAMMER TOE 1966 Left ROTATOR CUFF REPAIR 12/1999 Left VITRECTOMY;W/EPIRETINAL MEMBRAN Right 01/04/2009 25ga VXMX, kenalog--CELESTINO YAG CAPSULOTOMY - OD - RIGHT EYE Right 03/09/2002 Dr. Belle YAG CAPSULOTOMY - OS - LEFT EYE Left 04/10/2003 Dr. TIRADO Allergies Allergen Reactions Erythromycin GI Reaction diarrhea Morphine GI Reaction vomitting Zocor [Simvastatin] Other Leg myalgias Chocolate Metronidazole Prednisone Primidone SAT ACT INSTRUCTOR Reaction Dizziness and headache Probiotic GI Reaction Worse gas symptoms Tetracycline Hcl Current Outpatient Medications Medication Sig allopurinol (ZYLOPRIM) 300 MG Oral Tab take 1/2 tablet by mouth once daily apixaban (ELIQUIS) 2.5 MG Oral Tab Take 1 Tab by mouth TWICE DAILY. Azelaic Acid (FINACEA) 15 % Apply externally Gel by Apply externally route NEEDED calcium carbonate (TUMS) 500 MG Oral Chew Tab Take 1 Tab by mouth NEEDED. daily vitamin PO TABS Take 1 Tab by mouth EVERY MORNING. Hypromellose (ARTIFICIAL TEARS OP) Place to the external eye. Omeprazole delayed rel cap 20 MG Oral CAPSULE DELAYED RELEASE take 1 capsule by mouth once daily Rosuvastatin Calcium 5 MG Oral Tab Take 1 Tab by mouth DAILY. Tamsulosin HCl (FLOMAX) 0.4 MG Oral Cap take 1 to 2 capsules by mouth daily triamcinolone (KENALOG,ARISTOCORT) 0.1 % Apply externally Cream Apply to affected areas dailyas needed Vitamin D, Cholecalciferol, 1000 units Oral Cap Take by mouth DAILY. No current facility-administered medications for this visit. Family History Problem Relation Age of Onset Stroke Mother Heart Father [place], cyanide poisoning Diabetes No family history Glaucoma No family history Blindness No family history Macular Degeneration No family history Other Eye Problems No family history Social History Socioeconomic History Marital status: Spouse name: Not on file Number of children: Not on file Years of education: Not on file Highest education level: Not on file Occupational History Not on file Social Needs Financial resource strain: Not on file Food insecurity: Worry: Not on file Inability: Not on file Transportation needs: Medical: Not on file Non-medical: Not on file Tobacco Use Smoking status: Never Smoker Smokeless tobacco: Never Used Substance and Sexual Activity Alcohol use: No Alcohol/week: 0.0 standard drinks Drug use: No Sexual activity: Not on file Lifestyle Physical activity: Days per week: Not on file Minutes per session: Not on file Stress: Not on file Relationships Social connections: Talks on phone: Not on file Gets together: Not on file Attends protestant service: Not on file Active member of club or organization: Not on file Attends meetings of clubs or organizations: Not on file Relationship status: Not on file Intimate partner violence: Fear of current or ex partner: Not on file Emotionally abused: Not on file Physically abused: Not on file Forced sexual activity: Not on file Other Topics Concern Not on file Social History Narrative Not on file Review of Systems - Negative except as noted in HPI. Physical Exam: Vitals: 09/01/19 1614 BP: 128/70 BP Location: Right arm Patient Position: Sitting Pulse: 76 Weight: 196 lb (88.9 kg) Height: 5' 10" (1.778 m) Body mass index is 28.12 kg/m. General: Well nourished, alert 88-y.o. male in NAD HEENT: anicteric, MMM, no E/E OP, conj pink Neck: JVP approx 5-6 cm above RA, no carotid bruits or LAD CV: RRR, normal s1/s2, 1-2/6 AGUSTINA at USB and 2/6 systolic murmur at apex as before. Pulm: CTA bilaterally without wheezes, rhonchi, or rales. No increased work of breathing. Abd: soft, NT, ND, +BS. No appreciable bruits. Ext: 1+ bilateral lower extremity edema, no cyanosis, no cords, redness, or warmth, 1+ distal pulses Neuro: no gross focal deficits but full exam not performed. Skin: no visible lesions Labs: Lab Results Component Value Date NA 137 05/25/2019 K 5.0 05/25/2019 CL 108 (H) 05/25/2019 CO2 21 (L) 05/25/2019 GLUCOSE 115 (H) 05/25/2019 BUN 43 (H) 05/25/2019 CREATININE 1.9 (H) 05/25/2019 CALCIUM 9.2 05/25/2019 TP 7.2 11/30/2018 ALBUMIN 4.0 11/30/2018 ALBUMIN 3.8 11/30/2018 AST 28 11/30/2018 ALT 22 11/30/2018 ALK 78 11/30/2018 TBILI 0.3 11/30/2018 EGFR 34 05/25/2019 No results found for: BNP Lab Results Component Value Date CHOL 143 11/30/2018 TRIG 117 11/30/2018 HDL 29 (L) 11/30/2018 LDL 91 11/30/2018 LDLHDLRATIO 3.1 11/30/2018 CHOLHDLRATIO 4.9 11/30/2018 Cardiac Studies: PPM Interrogation 07/06/19: This is a follow-up visit from device implant and atrial lead. There have been 5 episodes of atrial fibrillation with the longest lasting for 98 minutes. All episodes occurred on 05/27/19. On Eliquis. Heart rates ranged between 60-100 bpm the majority of the time. Pacemaker function appears normal. LIZETH 04/19/19: FINAL IMPRESSION: Mild concentric LVH with moderate left atrial enlargement and no evidence of LA/AMANUEL thrombus. Normal LV systolic function with no regional wall motion abnormalities and estimated LVEF 55-60%. Mildly dilated right heart with preserved RV function Moderate mitral annular calcification with mobile mass likely a calcified chord (see text). Moderate mitral valve regurgitation No other significant valvular stenosis or regurgitation No pericardial effusion. TTE 03/02/19: Mitral Valve Mitral valve has mildly thickened but flexible leaflets. No evidence of mitral stenosis or prolapse. There is mild to moderate posterior> anterior mitral annular calcification. A mobile echodensity is seen on the ventricular side of the posterior mitral annulus (see images 44-45, 53-55, 63-64). This most likely represents mobile calcification, although an old calcified thrombus or mass cannot be completely ruled out. Consider LIZETH or cMRI for further evaluation if clinically indicated. There is mild to moderate mitral regurgitation. FINAL IMPRESSION: Mild concentric LVH with moderate left atrial enlargement. Normal LV systolic function with no regional wall motion abnormalities; estimated LVEF 55-60%. Mild right heart enlargement with normal RV contractility. Mitral annular calcification with mild-moderate mitral regurgitation and mobile echodensity on the posterior annulus (see text). Mild aortic and tricuspid regurgitation. Mild elevation in estimated pulmonary arterial systolic pressure. No pericardial effusion. Compared to prior [facility] echo report 09/20/2014, estimated PASP has decreased (51 mmHg --> 43 mmHg) and a mitral annular echodensity is now reported. Exercise SPECT at [facility] 10/06/2014: Left Heart Cath at [facility] 07/2011: Assessment & Plan: Vlad Kaba is a 88-y.o. male with HTN, CKD, GERD, Schatzki's ring s/p esophageal dilation, SSS s/p Medtronic dual chamber ppm, CAD with ACS 2010 and resultant SONIA to mLAD with residual moderate disease in diag and RCA. He also had a TIA 01/2019, and pacemaker interrogations have revealed paroxysmal atrial fibrillation. In May 2019 he had an atrial lead fracture and had generator and lead replacement. ICD-9-CM ICD-10-CM 1. Paroxysmal atrial fibrillation (HCC) 427.31 I48.0 2. Sinus node dysfunction (HCC) 427.81 I49.5 3. Coronary artery disease involving muscogee coronary artery of muscogee heart without angina pectoris 414.01 I25.10 4. Pacemaker V45.01 Z95.0 1. Paroxysmal Atrial Fibrillation: The etiology of atrial fibrillation in this patient is most likely related to age, HTN, and possibly the CAD. The heart- rate is currently well controlled on the current medical regimen. This patient' s [id number] score is 6. I recommend the following treatment strategy and medical regimen for this patient: Stroke prevention: Based on the patient's [id number] risk profile, I recommend continuing OACtherapy with Eliquis. Given his age > 80 and creatinine > 1.5, we'll continue with the 2.5mg BID dose. Rate control: Pt not on any AV elie agents but there is no report of high rate episodes on ppminterrogation. Rhythm control: N/A; pt in NSR most of the time and is asymptomatic when in AF. 2. Mitral Annular Abnormality: Most likely a calcified chord on LIZETH. Given that we're anticoagulating him anyway for the Afib, no further w/u of this is needed. 3. Coronary Artery Disease, s/p SONIA to mLAD: Currently asymptomatic from an ischemic standpoint. I recommend the following medical regimen: Antiplatelets: Not on ASA given Eliquis. Statin: Had significant myalgias from atorvastatin. Also thinks that his neurologic symptoms in January were related to the Crestor but that is highly unlikely and most likely was a TIA in the setting of not being anticoagulated for his Afib. Will retry low dose Crestor 5mg daily and he'll let me know if he has any problems with that. Beta-ketan: Not on. May consider adding at some point given his prior ACS. CHUN-inhibitor/ARB: Also not on. Given his significant CKD we probably can 't add this med class. 4. SSS s/p Medtronic Dual Chamber PPM: Cont remote checks of his device. Thank you for allowing me to participate in the care of Vladthai Kaba. We will plan on f/u in our office in 6 months or sooner prn. If you have any questions or concerns please feel free to call ouroffice at . Andrew Anders MD, 09/01/2019, 20:58 This note was created using my previous note as a template; changes were made where appropriate, andall information in the current note is up to date to the best of my knowledge.Electronically signed by Andrew Anders MD at 2018 9:07 PM EDTdocumented in this encounter Plan of Treatment Date Type Specialty Care Team Description 09/13/2019 Office Visit Internal Medicine Grant Adame MD [address] [place] [address] [phone] 11/17/2019 [facility] 03/01/2020 Office Visit Cardiology Andrew Anders MD [address] [place] [address] [phone] 03/19/2020 [facility] 05/18/2020 [facility] Ophthalmology 05/18/2020 Ocular Visit Optometry Fabián Ruth, OD [address] [address] [phone] 07/23/2020 [facility] Health Maintenance Due Date Last Done Comments ZOSTER IMMUNIZATION SERIES 1980 (1 of 2) FALL RISK ASSESSMENT 1995 PNEUMOCOCCAL 65+YRS (2 of 2 11/27/2015 11/27/2014, 08/17/1998 - PPSV23) MEDICARE ANNUAL WELLNESS 05/03/2016 05/03/2015 (Postponed) VISIT DEPRESSION SCREENING 05/11/2020 05/11/2019 INFLUENZA VACCINE Completed 08/09/2019, 08/02/2018, 08/03/2017, Additional history exists HPV IMMUNIZATION SERIES Aged Out No longer eligible based on patient's age to complete this topic MENINGOCOCCAL VACCINE IMM Aged Out No longer eligible based on patient's age to complete this topic documented as of this encounter Goals Goal Patient Goal Associated Recent Patient-Stated? Author Type Problems Progress Blood Pressure Blood Pressure Essential 128/70 No Deep, < 140/90 hypertension (09/01/2019 MD Grant 4:14 PM EDT) Note: Hypertension Care Plan Based on the patient's clinical history and according to JNC 8 guidelines target blood pressure goal is less than 140/90. Based on the patient's last blood pressure of BP: 140/82 mmHg the patient is at at goal. As your provider, it is important that I advise you regarding: your current medications and help you with any challenges you may face taking your medications as directed (ex. instructions, cost, side effects, and interactions). lifestyle changes: exercise, weight reduction, diet and dietary sodium reduction your clinical goals and how you can achieve success: exercise plan and diet improvements medication management: adjusted medications as appropriate the availability of a care partner to help you with your Hypertension patient education/self-management tools provided: Current self-management tools adequate To successfully manage my Hypertension I will: monitor my blood pressure daily, understanding that my goal is less than 140/ 90 per my healthcare provider's recommendation. I will schedule an appointment with my provider if consistent abnormal readings greater than 160/100. take medications every day as prescribed by my healthcare provider and if unable to take them I will discuss with my provider. monitor for symptoms of chest pain, chest tightness/pressure, irregular heartbeat, persistent dizziness, radiating arm pain, and neck or jaw pain. If any of these symptoms are noticed I will seek medical attention immediately by calling 911 exercise/walk 45 minutes 5 day(s) per week. If I experience chest pain, chest tightness, or shortness of breath, I will seek medical attention immediately. follow a diet rich in fruits, vegetables, and low-fat dairy products with reduced content of saturated & total fat. I will reduce my sodium intake daily. An example is the DASH diet. To obtain more information please refer to the DASH Eating Plan listed in Educational Resources. record my blood pressure results. [employer] is safe and secure way for you to do this in your medical record online. try to obtain an ideal body weight. My recent weight was Weight: 196 lb ( 88.905 kg). My weight loss goal for my next office visit is 195. limit alcohol consumption. For men two drinks per day and women one drink per day. if currently smoking, will discuss how to quit smoking with my healthcare provider and work towards quitting. Educational Resources: National Heart, Lung, & Blood [place] http://nhlbi.nih.gov/hbp/index.html The DASH Diet Eating Plan http://www.nhlbi.nih.gov/health/health-topics/ topics/dash/ Academy of Nutrition & DIetetics http://eatright.org National Smoking Cessation Site http://smokefree.gov Blood Pressure < Blood Pressure Essential 128/70 (09/01/2019 Grant Moore, 140/90 hypertension 4:14 PM EDT) Note: Hypertension Care Plan Based on the patient's clinical history and according to JNC 8 guidelines target blood pressure goal is less than 140/90. Based on the patient's last blood pressure of BP: 140/82 mmHg the patient is at at goal. As your provider, it is important that I advise you regarding: your current medications and help you with any challenges you may face taking your medications as directed (ex. instructions, cost, side effects, and interactions). lifestyle changes: exercise, weight reduction, diet, dietary sodium reduction and medication compliance your clinical goals and how you can achieve success: weight reduction, exercise plan and diet improvements medication management: adjusted medications as appropriate the availability of a care partner to help you with your Hypertension patient education/self-management tools provided: Current self-management tools adequate To successfully manage my Hypertension I will: monitor my blood pressure daily, understanding that my goal is less than 140/ 90 per my healthcare provider's recommendation. I will schedule an appointment with my provider if consistent abnormal readings greater than 160/100. take medications every day as prescribed by my healthcare provider and if unable to take them I will discuss with my provider. monitor for symptoms of chest pain, chest tightness/pressure, irregular heartbeat, persistent dizziness, radiating arm pain, and neck or jaw pain. If any of these symptoms are noticed I will seek medical attention immediately by calling 911 exercise/walk 45 minutes 5 day(s) per week. If I experience chest pain, chest tightness, or shortness of breath, I will seek medical attention immediately. follow a diet rich in fruits, vegetables, and low-fat dairy products with reduced content of saturated & total fat. I will reduce my sodium intake daily. An example is the DASH diet. To obtain more information please refer to the DASH Eating Plan listed in Educational Resources. record my blood pressure results. [employer] is safe and secure way for you to do this in your medical record online. try to obtain an ideal body weight. My recent weight was Weight: 196 lb ( 88.905 kg). My weight loss goal for my next office visit is 195. limit alcohol consumption. For men two drinks per day and women one drink per day. if currently smoking, will discuss how to quit smoking with my healthcare provider and work towards quitting. Educational Resources: National Heart, Lung, & Blood [place] http://nhlbi.nih.gov/hbp/index.html The DASH Diet Eating Plan http://www.nhlbi.nih.gov/health/health-topics/ topics/dash/ Academy of Nutrition & DIetetics http://eatright.org National Smoking Cessation Site http://smokefree.gov Blood Pressure < 140/90 Blood Pressure 128/70 (09/01/2019 4:14 Malini Flores MD PM EDT) Note: This is an individualized treatment (blood pressure) goal for Vlad Kaba: Displayed above (on the left) is your goal for blood pressure control. Your most recent blood pressure is also shown above, on the right. You should try to achieve blood pressures that are lower than your goal listed above (on the left). Take all prescribed medications as directed Self-management Malini Flores MD Note: This is an individualized self-management goal for Vlad Kaba: Please take all prescribed medications as directed. 1. Do not skip doses. If you cannot afford your medications, talk with your doctor. 2. Use a pill reminder system such as a pill box if needed. Your pharmacist can help you with this. 3. Contact your Pharmacy 5 days before your medication runs out. If you cannot take your medications for any reasons, talk with your doctor. 4. Please bring all of your medication bottles and inhalers (or a list of all your medications/inhalers) with you to every visit. Potential barriers to meeting all of your care plan goals will continue to be addressed on an ongoing basis. documented as of this encounter Implants Implanted Type Area Creative Resource Manager Device Shelf Model / Serial Identifier Expiration / Lot Date Smart Set Bone Cement W/ Gentimy - [id number] Right: DEPUY 08/09/2016 [id number] / Implanted: Qty: 1 on 05/14/2015 by Galileo Young MD at [facility] Knee / [id number] Smart Set Cement - [id number] Right: DEPUY 10/09/2016 [id number] / Implanted: Qty: 1 on 05/14/2015 by Galileo Young MD at [facility] Knee / [id number] Persona Knee Femur Cemented Posterior Stabilized Standard Right 12 Right: HAMMAD BAZAN [id number] 03/08/2024 [id number] / Implanted: Qty: 1 on 05/14/2015 by Galileo Young MD at [facility] [employer]nee ASSOC 2 / [id number] Persona Knee Natural Tibia Cemented 5 Degree Stemmed Right Size J Right: HAMMAD BAZAN [id number] 03/08/2023 [id number] / Implanted: Qty: 1 on 05/14/2015 by Galileo Young MD at [facility] Knee ASSOC 2 / [id number] Persona Knee All Poly Patella Cemented 38mm Diameter 9.5 Thickness Right: HAMMAD BAZAN [id number] 11/08/2021 [id number] / Implanted: Qty: 1 on 05/14/2015 by Galileo Young MD at [facility] [employer] 8 / [id number] Persona Knee Articular Surface Fixed Bearing Posterior Stabilized Right 10mm Height Right: HAMMAD BAAZN [id number] 07/09/2020 [id number] / Implanted: Qty: 1 on 05/14/2015 by Galileo Young MD at [facility] [employer] 0 / [id number] Capsurefix Lead 5076-52cm - [id number] [employer] 01/05/2021 [id number] / Implanted: Qty: 1 on 05/24/2019 by Ronni Cedeno MD at [facility] [id number] / Advisa Mri [id number] Pacemaker - [id number] [employer] 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 Order was discussed with: Unable to determine at this time I discussed all options and Unable to determine at this time (full patient/surrogate requested and agreed to: code until choice is made and new order placed) Full Code 04/19/2019 9:26 AM 05/24/2019 7:05 AM Does the patient have decision making capacity? Yes Order was discussed with: Patient I discussed all options and patient/surrogate requested and agreed to: Full Code Full Code 04/19/2019 9:25 AM 04/19/2019 9:26 AM Does the patient have decision making capacity? Yes Order was discussed with: Patient I discussed all options and patient/surrogate requested and agreed to: Full Code Full Code 04/19/2019 9:25 AM 04/19/2019 9:25 AM Does the patient have decision making capacity? Yes Order was discussed with: Patient I discussed all options and patient/surrogate requested and agreed to: Full Code
--- OUTSIDE RECORDS SUMMARY | 2019-09-21 13:45 | XMS REPORT | Summary of Care ---
:1930 Author Organization [facility] Address [address] [place] [address] Care Team Providers Name Role Phone Grant Adame Primary Care Provider Fabián Phillips MD Secondary Web Merchant/Director Of Technology Yessica Guerrero Plow Shaker Unavailable Reason for Visit Reason Comments Hypertension f/u BP: 132/72; about week ago seem to be running low; has resolved since. 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 kaguyuk heart without angina pectoris; [place] [address] Weakness of both lower extremities [phone] Allergies Active Allergy Reactions Severity Noted Date Comments Chocolate 12/09/2007 Erythromycin GI Reaction High 12/09/2007 diarrhea Metronidazole 12/09/2007 Morphine GI Reaction Medium 12/09/2007 vomitting Prednisone Primidone CAREER MANAGER Reaction 08/30/2008 Dizziness and headache Probiotic GI Reaction 04/19/2014 Worse gas symptoms Tetracycline Hcl Simvastatin Other Medium 12/09/2007 Leg myalgias documented as of this encounter (statuses as of 09/13/2019) Medications Medication Sig Dispensed Refills Start Date [...] 500 MG Oral mouth NEEDED. Chew Tab Omeprazole delayed rel take 1 capsule by [...] 09/01/2019 Active MG Oral Tab mouth DAILY. allopurinol (ZYLOPRIM) Take 0.5 Tabs by 45 Tab 3 09/08/2019 Active 300 MG Oral Tab mouth DAILY. documented as of this encounter (statuses as of 09/13/2019) Active Problems Problem Noted Date Atrial fibrillation 05/04/2019 Overview: Added automatically from request for surgery [id number] Paroxysmal atrial fibrillation 05/02/2019 Abnormality of mitral valve annulus 03/24/2019 Overview: Added automatically from request for surgery [id number] Right-sided low back pain with sciatica 07/02/2016 [...] pacer placed 2010 Coronary artery disease involving kaguyuk coronary artery of kaguyuk heart 12/03 without angina pectoris Overview: Status post placement of drug-eluting stent in the left anterior descending, July [address] Reza Crockett at [facility] BMI 28.0-28.9,adult 06/24/2011 Overview: This patient's BMI [...] as of this encounter (statuses as of 09/13/2019) Resolved Problems Problem Noted Date Resolved Date Anemia, blood loss 05/16/2015 08/02/2018 documented as of this encounter (statuses as of 09/13/2019) Immunizations Name Administration Dates Next Due Depo [...] Sign Reading Time Taken Comments Blood Pressure 132/72 09/13/2019 11:16 AM EST Pulse 64 09/13/2019 11:16 AM EST Temperature - - Respiratory Rate - - Oxygen Saturation - - Inhaled Oxygen Concentration - - Weight 90.3 kg (199 lb) 09/13/2019 11:16 AM EST Height - - Body Mass Index 28.55 09/01/2019 4:14 PM EDT documented in this encounter Patient Instructions Patient InstructionsGrant Adame MD - 09/13/2019 11:00 AM ESTContinue same medicines Try avoiding milk to help with gas problem, or using Lactaid milk When blood pressure gets low, drink a glass of Gatorade which has salt and sugar and it follow up in 4 months documented in this encounter Progress Notes Grant Adame MD - 09/13/2019 11:00 AM EST PATIENT: Vlad Kaba : 1930 DATE OF SERVICE: 09/13/2019 CHIEF COMPLAINT: Chief Complaint Patient presents with Hypertension f/u BP: 132/72; about week ago seem to be running low; has resolved since. Atrial Fibrillation f/u Subjective HISTORY OF PRESENT ILLNESS: Vlad Kaba is a 88-y.o. male. Hypertension Associated symptoms include malaise/fatigue and dizziness. Pertinent negatives include no chest pain, no blurred vision and no shortness of breath. BP was low last week, lasted all afternoon. No apparent cause. Does aquatherapy 2x/wk. [place] it after a session, ate something, felt better, but then after lunch, felt weak, unable to move. 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 History of permanent cardiac pacemaker placement HTN (hypertension) Mild Renal Insufficiency 12/09/2007 Paroxysmal atrial fibrillation (HCC) 05/02/2019 Pelvis fracture (HCC) Rosacea Schatzki's ring Sick sinus syndrome (HCC) with permanent pacemaker Surgery, elective Family History Problem Relation Age of Onset Stroke Mother Heart Father [place], cyanide poisoning Diabetes No family history Glaucoma No family history Blindness No family history Macular Degeneration No family history Other Eye Problems No family history Current Outpatient Medications Medication Sig allopurinol (ZYLOPRIM) 300 MG Oral Tab Take 0.5 Tabs by mouth DAILY. apixaban (ELIQUIS) 2.5 MG Oral Tab Take [...] No current facility-administered medications for this visit. Allergies Allergen Reactions Erythromycin GI Reaction diarrhea Morphine GI Reaction vomitting Zocor [Simvastatin] Other Leg myalgias Chocolate Metronidazole Prednisone Primidone CAREER MANAGER Reaction Dizziness and headache Probiotic GI Reaction Worse gas symptoms Tetracycline Hcl Social History Socioeconomic History Marital status: Spouse [...] file Gets together: Not on file Attends mormon service: Not on file Active member of [...] file Social History Narrative Not on file REVIEW OF SYSTEMS: Review of Systems Constitutional: Positive for malaise/fatigue. Negative for weight loss. HENT: Negative for congestion. Eyes: Negative for blurred vision. Respiratory: Negative for shortness of breath. Cardiovascular: Negative for chest pain. Gastrointestinal: Negative for abdominal pain. Genitourinary: Positive for frequency. Musculoskeletal: Positive for back pain and joint pain. Skin: Negative for rash. Neurological: Positive for dizziness and tremors. Negative for seizures and loss of consciousness. Psychiatric/Behavioral: Negative for depression. The patient is not nervous/ anxious. Objective PHYSICAL EXAM: VITALS: BP 132/72 (BP Location: Left arm, Patient Position: Sitting) | Pulse 64 | Wt 199 lb (90.3kg) | BMI 28.55 kg/m Body mass index is 28.55 kg/m . Physical Exam Alert, oriented, in no acute distress. Vitals as above. HEENT: unremarkable. Neck: No palpable lymphadenopathy in the submandibular, submental, anterior cervical, posterior cervical, or occipital chains, nor in the supraclavicular spaces. No JVD, thyromegaly. LUNGS: clear. HEART: Regular rate and rhythm. EXTREMITIES: no cyanosis, clubbing, but with trace edema. Walking with a cane ASSESSMENT / IMPRESSION: ICD-9-CM ICD-10-CM 1. Hypotension, unspecified hypotension typetold him to stay well-hydrated , try drinking a glass of Gatorade when blood pressure gets low 458.9 I95.9 2. Stage 3 chronic kidney disease (HCC)stable 585.3 N18.3 3. Coronary artery disease involving kaguy[place] coronary artery of kaguy[place] heart without angina pectorisstable 414.01 I25.10 4. Weakness of both lower extremitiesnow using a cane to help with steadiness. Told him to stay physically active to keep legs as strong as possible 729.89 R29.898 5. Intestinal gasTry avoiding milk products Patient Instructions Continue same medicines Try avoiding milk to help with gas problem, or using Lactaid milk When blood pressure gets low, drink a glass of Gatorade which has salt and sugar and it follow up in 4 months Author: Grant Adame MD 09/13/2019 11:44 documented in this encounter Plan of Treatment Date Type Specialty Care Team Description 11/17/2019 [facility] Arrhythmia Center 01/11/2020 Office Visit Internal Medicine Grant Adame MD [address] [place] [address] 03/01/2020 Office Visit Cardiology Andrew Anders MD [address] [place] [address] 03/19/2020 [facility] Arrhythmia Center 05/18/2020 [facility] Ophthalmology 05/18/2020 Ocular Visit Optometry Fabián Ruth, OD [address] [place] [address] [phone] 07/23/2020 [facility] Arrhythmia Center Health Maintenance Due Date Last Done Comments ZOSTER IMMUNIZATION SERIES 1980 (1 of 2) PNEUMOCOCCAL 65+YRS (2 of 2 11/27/2015 11/27/2014, 08/17/1998 - PPSV23) MEDICARE ANNUAL WELLNESS 05/03/2016 05/03/2015 (Postponed) VISIT DEPRESSION SCREENING 05/11/2020 05/11/2019 FALL RISK ASSESSMENT 09/13/2020 09/13/2019, 09/13/2019 INFLUENZA VACCINE Completed 08/09/2019, 08/02/2018, 08/03/2017, Additional history exists HPV IMMUNIZATION SERIES Aged Out No longer eligible based on patient's age to complete this topic MENINGOCOCCAL VACCINE IMM Aged Out No longer eligible based on patient's age to complete this topic documented as of this encounter Goals Goal Patient Goal Associated Recent Patient-Stated? Author Type Problems Progress Blood Pressure Blood Pressure Essential 132/72 No Deep, < 140/90 hypertension (09/13/2019 MD Grant 11:16 AM EST) Note: Hypertension Care Plan Based on the [...] medications as appropriate the availability of a hospice patient care secretary to help you with your Hypertension patient [...] Educational Resources. record my blood pressure results. As[employer]our[employer] is safe and secure way for you [...] Educational Resources: National Heart, Lung, & Blood [place] http://nhlbi.nih.gov/hbp/index.html The DASH Diet Eating Plan http://www.nhlbi.nih.gov/health/health-topics/ topics/dash/ Academy of Nutrition & DIetetics http://eatright.org National Smoking Cessation Site http://smokefree.gov Blood Pressure < Blood Pressure Essential 132/72 (09/13/2019 No NaviGrant rubin, 140/90 hypertension 11:16 AM EST) Note: Hypertension Care Plan Based on the [...] medications as appropriate the availability of a hospice patient care secretary to help you with your Hypertension patient [...] Educational Resources: National Heart, Lung, & Blood [place] http://nhlbi.nih.gov/hbp/index.html The DASH Diet Eating Plan http://www.nhlbi.nih.gov/health/health-topics/ topics/dash/ Academy of Nutrition & DIetetics http://eatright.org National Smoking Cessation Site http://smokefree.gov Blood Pressure < 140/90 Blood Pressure 132/72 (09/13/2019 11:16 Malini Flores MD AM EST) Note: This is an individualized treatment (blood [...] of this encounter Implants Implanted Type Area Investment Banking Manager Device Shelf Model / Serial Identifier Expiration / Lot Date Smart Set Bone Cement W/ Gentimy - [id number] Right: DEPUY 08/09/2016 [id number] / Implanted: Qty: 1 on 05/14/2015 by Galileo Young MD at [facility] / [id number] Smart Set Cement - [id number] Right: DEPUY 10/09/2016 [id number] / Implanted: Qty: 1 on 05/14/2015 by Galileo Young MD at [facility] / [id number] Persona Knee Femur Cemented Posterior Stabilized Standard Right 12 Right: HAMMAD BAZAN [id number] 03/08/2024 [id number] / Implanted: Qty: 1 on 05/14/2015 by Galileo Young MD at [facility] [employer] 2 / [id number] Persona Knee Natural Tibia Cemented 5 Degree Stemmed Right Size J Right: HAMMAD BAZAN [id number] 03/08/2023 [id number] / Implanted: Qty: 1 on 05/14/2015 by Galileo Young MD at [facility] [employer] 2 / [id number] Persona Knee All Poly Patella Cemented 38mm Diameter 9.5 Thickness Right: HAMMAD BAZAN [id number] 11/08/2021 [id number] / Implanted: Qty: 1 on 05/14/2015 by Galileo Young MD at [facility] [employer] 8 / [id number] Persona Knee Articular Surface Fixed Bearing Posterior Stabilized Right 10mm Height Right: HAMMAD BLEDSOEALL [id number] 07/09/2020 [id number] / Implanted: Qty: 1 on 05/14/2015 by Galileo Young MD at [facility] [employer] 0 / [id number] Capsurefix Lead 5076-52cm - [id number] [employer] 01/05/2021 [id number] / Implanted: Qty: 1 on 05/24/2019 by Ronni Cedeno MD at [facility] [id number] / Advisa Mri A2dr01 Pacemaker - [id number] [employer] 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 of kaguy[place] heart without angina pectoris Weakness of both lower extremities documented in this encounter Insurance Payer Benefit Plan / Subscriber ID Effective Dates Phone Address Type Group MEDICARE MEDICARE PART A & B xxxxxxxxxxx 1995-Present Medicare [facility] UHC-EMPIRE PLAN xxxxxxxxx 2016-Present [place] Guarantor Name Account Type Relation to Date of Phone Billing Patient Address Vlad Kaba Personal/Family 1930 [address] (Home) [facility] [phone] [place], [place] (Work) [id number] documented as of this encounter Advance Directives [...] and patient/surrogate requested and agreed to: Full Code"
[2019-09-21 16:50] VITALS: BP 156/85
== END 2019-09-21 16:37 | disposition home or self-care (01) ==
LOC: ED 11:13
DX: M54.6 Pain in thoracic spine (principal); R60.0 Localized edema; I70.0 Atherosclerosis of aorta; I44.0 Atrioventricular block, first degree; Z95.5 Presence of coronary angioplasty implant and graft; Z79.01 Long term (current) use of anticoagulants; Z95.810 Presence of automatic (implantable) cardiac defibrillator; Z88.1 Allergy status to other antibiotic agents; Z88.5 Allergy status to narcotic agent; Z88.8 Allergy status to other drugs, medicaments and biological substances
CPT/HCPCS: 36415; 71275; 80053; 83605; 83880; 84484; 85025; 93005; 99283; Q9967

== ENCOUNTER 2020-08-14 12:02 | Inpatient (IN) ==
[2020-08-14] MEDS ORDERED: Morphine 2 MG/ML SYRINGE IV PRN (16:38)
[2020-08-14] MEDS ORDERED: oxyCODONE/Acetamin 5/325 mg TAB PO PRN (16:38)
[2020-08-14] MEDS ORDERED: Ondansetron 4 mg VIAL 2 MG/ML 2 ml VIAL IV PRN (16:38)
[2020-08-14] MEDS ORDERED: Senna TAB 8.6 mg TAB PO PRN (16:38)
[2020-08-14] MEDS ORDERED: Polyethylene Glycol 3350 17 GM PACKET PO PRN (16:47)
[2020-08-14] MEDS ORDERED: HYPROMELLOSE BOTH EYES PRN (16:47)
[2020-08-14] MEDS: Enoxaparin 30 MG/0.3 ML SYR SUBCUT SCH (18:28)
[2020-08-14 19:39] LABS: ABS Eosinophils 0.2 10^3/ul (0-0.6); ABS Lymphocytes 0.7 10^3/ul (1.0-4.8); ABS Neutrophils 7.3 10^3/ul (1.5-7.7); Eosinophil % 1.9 %; Hematocrit 28 % (42-52); Hemoglobin 9.6 g/dL (14.0-18.0); Lymphocyte % 8.1 %; Mean Corpuscular HGB Conc 34 g/dL (31-36); Mean Corpuscular Hemoglobin 33 pg (27-31); Mean Corpuscular Volume 98 fL (80-94); Mean Platelet Volume 8.1 fL (7.4-10.4); Platelet Count 133 10^3/uL (150-450); Red Blood Count 2.88 10^6 /uL (4.18-5.48); Red Cell Distribution Width 16 % (10-15); White Blood Count 9.3 10^3/uL (3.5-10.8)
[2020-08-14 20:11] LABS: Albumin 3.9 g/dL (3.2-5.2); Albumin/Globulin Ratio 1.6 (1-3); BUN/Creatinine Ratio 24.3 (8-20); Calcium 9.2 mg/dL (8.6-10.3); EGFR African American 42.9 (>60); EGFR Non-African American 35.5 (>60); Globulin 2.5 g/dL (2-4); Potassium 4.9 mmol/L (3.5-5.0); Total Bilirubin 0.5 mg/dL (0.2-1.0); Total Protein 6.4 g/dL (6.4-8.9)
[2020-08-15 02:26] LABS: INR 1.4 (0.82-1.09)
[2020-08-15 05:49] LABS: ABS Eosinophils 0.4 10^3/ul (0-0.6); ABS Lymphocytes 0.9 10^3/ul (1.0-4.8); ABS Monocytes 0.9 10^3/ul (0-0.8); ABS Neutrophils 5.4 10^3/ul (1.5-7.7); Eosinophil % 4.7 %; Hematocrit 28 % (42-52); Hemoglobin 9.2 g/dL (14.0-18.0); Lymphocyte % 11.3 %; Mean Corpuscular HGB Conc 33 g/dL (31-36); Mean Corpuscular Hemoglobin 33 pg (27-31); Mean Corpuscular Volume 98 fL (80-94); Mean Platelet Volume 8.4 fL (7.4-10.4); Platelet Count 135 10^3/uL (150-450); Red Blood Count 2.81 10^6 /uL (4.18-5.48); Red Cell Distribution Width 16 % (10-15); White Blood Count 7.6 10^3/uL (3.5-10.8)
[2020-08-15 06:01] LABS: INR 1.4 (0.82-1.09)
[2020-08-15] MEDS: Multivitamins/Minerals TAB PO SCH (10:46)
[2020-08-15] MEDS: Enoxaparin 30 MG/0.3 ML SYR SUBCUT SCH (16:20)
[2020-08-16 05:45] LABS: ABS Eosinophils 0.5 10^3/ul (0-0.6); ABS Lymphocytes 0.8 10^3/ul (1.0-4.8); ABS Monocytes 1.3 10^3/ul (0-0.8); Eosinophil % 5.9 %; Hematocrit 29 % (42-52); Hemoglobin 9.6 g/dL (14.0-18.0); Lymphocyte % 9.1 %; Mean Corpuscular HGB Conc 33 g/dL (31-36); Mean Corpuscular Hemoglobin 33 pg (27-31); Mean Corpuscular Volume 98 fL (80-94); Mean Platelet Volume 7.9 fL (7.4-10.4); Platelet Count 125 10^3/uL (150-450); Red Blood Count 2.94 10^6 /uL (4.18-5.48); Red Cell Distribution Width 16 % (10-15); White Blood Count 8.6 10^3/uL (3.5-10.8)
[2020-08-16 05:59] LABS: BUN/Creatinine Ratio 23.9 (8-20); Calcium 9.3 mg/dL (8.6-10.3); EGFR African American 38.9 (>60); EGFR Non-African American 32.2 (>60); Potassium 4.8 mmol/L (3.5-5.0)
[2020-08-16] MEDS ORDERED: Lactated Ringers 1000 ml BAG 1,000 ML IV SCH ×2 (06:00→14:54)
[2020-08-16] MEDS ORDERED: Buffered Lidocaine 1% SYRIN 1 ml INTRADERM ONE (06:00)
[2020-08-16] MEDS: Multivitamins/Minerals TAB PO SCH (08:44)
[2020-08-16 10:01] LABS: INR 1.33 (0.82-1.09)
[2020-08-16] MEDS ORDERED: Famotidine IV 10 MG/ML 2 ml VIAL (20 mg) IV ONE (11:00)
[2020-08-16] MEDS ORDERED: Bupivacaine 0.25% SDV 30 ML ONE (11:42)
[2020-08-16] MEDS ORDERED: Metoprolol Tartrate 5 mg VIAL 5 ml VIAL (1 mg/ml) ONE (12:10)
[2020-08-16] MEDS ORDERED: Metoprolol Tartrate 5 mg VIAL 5 ml VIAL (1 mg/ml) IV ONE (13:00)
[2020-08-16] MEDS ORDERED: Dextran 70/Hypromellose Tears Eye Drops 15 ml BTL (for Artificials Tears) BOTH EYES PRN (13:00)
[2020-08-16 13:46] LABS: ABS Eosinophils 0.2 10^3/ul (0-0.6); ABS Lymphocytes 0.6 10^3/ul (1.0-4.8); ABS Monocytes 1.3 10^3/ul (0-0.8); ABS Neutrophils 8.2 10^3/ul (1.5-7.7); Eosinophil % 2.1 %; Hematocrit 31 % (42-52); Hemoglobin 10.4 g/dL (14.0-18.0); Lymphocyte % 6.2 %; Mean Corpuscular HGB Conc 34 g/dL (31-36); Mean Corpuscular Hemoglobin 33 pg (27-31); Mean Corpuscular Volume 98 fL (80-94); Mean Platelet Volume 7.9 fL (7.4-10.4); Platelet Count 129 10^3/uL (150-450); Red Blood Count 3.15 10^6 /uL (4.18-5.48); Red Cell Distribution Width 16 % (10-15); White Blood Count 10.4 10^3/uL (3.5-10.8)
[2020-08-16] MEDS ORDERED: cefTRIAXone 1 gm/50 mL NS BAG 1 GM/50 ML BAG IVPB ONE (14:16)
[2020-08-16 14:34] LABS: Calcium 9.4 mg/dL (8.6-10.3); Potassium 4.8 mmol/L (3.5-5.0)
[2020-08-16 14:39] LABS: BUN/Creatinine Ratio 24.1 (8-20); EGFR African American 41.3 (>60); EGFR Non-African American 34.2 (>60)
[2020-08-16] MEDS ORDERED: Diltiazem (ADVAN VIAL) 100 MG/100 ML ADDV.BAG IV SCH (16:00)
[2020-08-16 16:01] LABS: Urine Appearance Clear; Urine Bilirubin Negative (Negative); Urine Blood Negative (Negative); Urine Color Yellow; Urine Glucose Negative (Negative); Urine Ketones Negative (Negative); Urine Nitrite Negative (Negative); Urine Protein 2+(100 mg/dL) (Negative); Urine Specific Gravity 1.015 (1.010-1.030); Urine Urobilinogen Negative (Negative)
[2020-08-16 16:06] LABS: Urine Bacteria 1+ (Absent); Urine Red Blood Cell 1+(3-5/hpf) (Absent); Urine Squamous Epithelial Cell Present (Absent); Urine White Blood Cell Trace(0-5/hpf) (Absent)
[2020-08-16] MEDS ORDERED: Enoxaparin 40 MG/0.4 ML SYR SUBCUT SCH (18:00)
[2020-08-16 19:07] LABS: Magnesium 1.5 mg/dL (1.9-2.7)
[2020-08-17 05:56] LABS: ABS Eosinophils 0.2 10^3/ul (0-0.6); ABS Lymphocytes 0.8 10^3/ul (1.0-4.8); ABS Monocytes 1.5 10^3/ul (0-0.8); ABS Neutrophils 7.6 10^3/ul (1.5-7.7); Eosinophil % 1.6 %; Hematocrit 27 % (42-52); Mean Corpuscular HGB Conc 34 g/dL (31-36); Mean Corpuscular Hemoglobin 33 pg (27-31); Mean Corpuscular Volume 98 fL (80-94); Mean Platelet Volume 8.8 fL (7.4-10.4); Platelet Count 114 10^3/uL (150-450); Red Blood Count 2.71 10^6 /uL (4.18-5.48); Red Cell Distribution Width 16 % (10-15); White Blood Count 10.1 10^3/uL (3.5-10.8)
[2020-08-17 06:16] LABS: Calcium 8.5 mg/dL (8.6-10.3); EGFR African American 32.1 (>60); EGFR Non-African American 26.5 (>60); Magnesium 1.6 mg/dL (1.9-2.7)
[2020-08-17 06:18] LABS: Potassium 5.1 mmol/L (3.5-5.0)
[2020-08-17] MEDS ORDERED: Magnesium Sulfate IV 3 GM in NS 0.9% 100 ml BAG 100 ML IVPB ONE (09:30)
[2020-08-17] MEDS: NS 0.9% 1000 ml BAG 1,000 ML IV SCH ×2 (09:42→18:16)
[2020-08-17] MEDS: Multivitamins/Minerals TAB PO SCH (11:02)
[2020-08-17] MEDS ORDERED: ceFAZolin 2 GM PREMIX 2 GM/50 ML BAG ONE (12:52)
[2020-08-17] MEDS ORDERED: Phenylephrine IV 10 MG/ML 1 ml VIAL ONE (14:41)
[2020-08-17] MEDS ORDERED: Etomidate 20 mg/10 ml 2 MG/ML 10 ml VIAL ONE (14:41)
[2020-08-17] MEDS ORDERED: fentaNYL 100 mcg/2 ml 50 MCG/ML VIAL ONE ×2 (14:41→15:25)
[2020-08-17] MEDS ORDERED: Lidocaine 2% PF 5 ML VIAL ONE (14:41)
[2020-08-17] MEDS ORDERED: EPHEDrine (Pressors) 50 MG/ML VIAL ONE (15:04)
[2020-08-17] MEDS ORDERED: HYDROcodone/ACETAMIN 5/325 mg TAB PO PRN (15:44)
[2020-08-17] MEDS ORDERED: oxyCODONE/Acetamin 5/325 mg TAB PO PRN (15:44)
[2020-08-17] MEDS ORDERED: fentaNYL 100 mcg/2 ml 50 MCG/ML VIAL IV PRN (15:44)
[2020-08-17] MEDS ORDERED: DiMENhydriNATE IV 50 mg/ml 1 ml VIAL IV PUSH PRN (15:44)
[2020-08-17] MEDS ORDERED: Naloxone 0.4 mg VIAL 0.4 mg/ml 1 ml VIAL IV PRN (15:44)
[2020-08-17 17:32] LABS: Hematocrit 24 % (42-52); Hemoglobin 7.9 g/dL (14.0-18.0)
[2020-08-17] MEDS ORDERED: NS 0.9% 500 ml BAG 500 ML IV ONE ×2 (19:42→20:12)
[2020-08-17] MEDS ORDERED: NS 0.9% 1000 ml BAG 1,000 ML IV SCH (21:40)
[2020-08-17] MEDS ORDERED: NS 0.9% 1000 ml BAG 1,000 ML IV ONE (21:40)
[2020-08-17 23:46] LABS: Urine Appearance Cloudy; Urine Bilirubin Negative (Negative); Urine Blood 2+ (Negative); Urine Color Yellow; Urine Glucose Negative (Negative); Urine Ketones Negative (Negative); Urine Nitrite Negative (Negative); Urine Protein 2+(100 mg/dL) (Negative); Urine Urobilinogen Negative (Negative)
[2020-08-17 23:52] LABS: Urine Bacteria 1+ (Absent); Urine Red Blood Cell 3+(>10/hpf) (Absent); Urine White Blood Cell 2+(11-20/hpf) (Absent)
[2020-08-18] MEDS: cefTRIAXone 1 gm/50 mL NS BAG 1 GM/50 ML BAG IVPB SCH (04:03)
[2020-08-18 05:47] LABS: ABS Eosinophils 0.3 10^3/ul (0-0.6); ABS Lymphocytes 0.7 10^3/ul (1.0-4.8); ABS Neutrophils 8.8 10^3/ul (1.5-7.7); Hematocrit 19 % (42-52); Hemoglobin 6.5 g/dL (14.0-18.0); Lymphocyte % 6.4 %; Mean Corpuscular HGB Conc 34 g/dL (31-36); Mean Corpuscular Hemoglobin 33 pg (27-31); Mean Corpuscular Volume 99 fL (80-94); Mean Platelet Volume 8.8 fL (7.4-10.4); Platelet Count 109 10^3/uL (150-450); Red Blood Count 1.96 10^6 /uL (4.18-5.48); Red Cell Distribution Width 16 % (10-15); White Blood Count 10.8 10^3/uL (3.5-10.8)
[2020-08-18 06:15] LABS: Albumin 2.9 g/dL (3.2-5.2); Albumin/Globulin Ratio 1.2 (1-3); BUN/Creatinine Ratio 27.4 (8-20); Calcium 7.7 mg/dL (8.6-10.3); EGFR African American 28.4 (>60); EGFR Non-African American 23.5 (>60); Globulin 2.4 g/dL (2-4); Potassium 4.8 mmol/L (3.5-5.0); Total Bilirubin 0.4 mg/dL (0.2-1.0); Total Protein 5.3 g/dL (6.4-8.9)
[2020-08-18] MEDS: Multivitamins/Minerals TAB PO SCH (08:06)
[2020-08-18] MEDS: Heparin 5000 UNITS/ML 1 mL VIAL SUBCUT SCH ×2 (16:43→21:49)
[2020-08-19 05:15] LABS: ABS Eosinophils 0.7 10^3/ul (0-0.6); ABS Lymphocytes 0.7 10^3/ul (1.0-4.8); ABS Monocytes 0.9 10^3/ul (0-0.8); ABS Neutrophils 7.2 10^3/ul (1.5-7.7); Eosinophil % 7.1 %; Hematocrit 23 % (42-52); Hemoglobin 7.7 g/dL (14.0-18.0); Lymphocyte % 6.9 %; Mean Corpuscular HGB Conc 34 g/dL (31-36); Mean Corpuscular Hemoglobin 33 pg (27-31); Mean Corpuscular Volume 96 fL (80-94); Mean Platelet Volume 8.8 fL (7.4-10.4); Platelet Count 108 10^3/uL (150-450); Red Blood Count 2.36 10^6 /uL (4.18-5.48); Red Cell Distribution Width 17 % (10-15); White Blood Count 9.5 10^3/uL (3.5-10.8)
[2020-08-19 05:34] LABS: BUN/Creatinine Ratio 31.2 (8-20); Calcium 8.2 mg/dL (8.6-10.3); EGFR African American 27.5 (>60); EGFR Non-African American 22.8 (>60); Potassium 4.3 mmol/L (3.5-5.0)
[2020-08-19] MEDS: cefTRIAXone 1 gm/50 mL NS BAG 1 GM/50 ML BAG IVPB SCH (05:49)
[2020-08-19] MEDS: Heparin 5000 UNITS/ML 1 mL VIAL SUBCUT SCH (05:52)
[2020-08-19] MEDS: Multivitamins/Minerals TAB PO SCH (07:52)
[2020-08-19] MEDS ORDERED: NS 0.9% 1000 ml BAG 1,000 ML IV SCH (08:44)
[2020-08-19] MEDS: Amoxicillin/Clavul 500/125 TAB (Augmentin 500 mg tab) PO SCH (23:19)
[2020-08-20 05:53] LABS: ABS Eosinophils 0.6 10^3/ul (0-0.6); ABS Lymphocytes 0.6 10^3/ul (1.0-4.8); ABS Monocytes 0.8 10^3/ul (0-0.8); ABS Neutrophils 5.6 10^3/ul (1.5-7.7); Eosinophil % 8.1 %; Hematocrit 25 % (42-52); Hemoglobin 8.2 g/dL (14.0-18.0); Lymphocyte % 7.2 %; Mean Corpuscular HGB Conc 33 g/dL (31-36); Mean Corpuscular Hemoglobin 32 pg (27-31); Mean Corpuscular Volume 94 fL (80-94); Mean Platelet Volume 9.2 fL (7.4-10.4); Platelet Count 127 10^3/uL (150-450); Red Cell Distribution Width 17 % (10-15); White Blood Count 7.7 10^3/uL (3.5-10.8)
[2020-08-20 06:30] LABS: BUN/Creatinine Ratio 34.3 (8-20); EGFR African American 31.6 (>60); EGFR Non-African American 26.1 (>60); Magnesium 2.2 mg/dL (1.9-2.7); Potassium 4.3 mmol/L (3.5-5.0)
[2020-08-20] MEDS: Multivitamins/Minerals TAB PO SCH (09:30)
[2020-08-20] MEDS: Amoxicillin/Clavul 500/125 TAB (Augmentin 500 mg tab) PO SCH (09:38)
[2020-08-20 11:59] VITALS: BP 125/58
== END 2020-08-20 14:00 | DRG 480 ==
LOC: ED 12:02 → SSU 17:58 → MEDTELE 08-16 14:50 → SSU 08-18 14:32
PROVIDERS: ADMIT Internal Medicine; ATTEND Internal Medicine